=== PATIENT | female | born 1950 | race Caucasian/White ===

== ENCOUNTER 2016-12-14 13:35 | Emergency (ER) | payer BC, OTHER ==
[~2016-12-14] VITALS: Ht 165.1 cm; Wt 95.0 kg
[~2016-12-14 13:35] MED LIST: AMBI10TA PO; CIPR500T2 PO; CLON.5 PO; DARV PO; EFFE150C PO; METR-1 PO; TIZA4 PO
[2016-12-14 13:44] VITALS: BP 168/96; PULSE 86; RESP 16; TEMP 98.2; O2SAT 98
[2016-12-14] MEDS ORDERED: ONDANSETRON ODT 4 MG TAB PO ONE (14:00)
[2016-12-14] MEDS ORDERED: ZANA4CAP PO (14:00)
[2016-12-14] MEDS ORDERED: HYDROmorphone HCL PF 1 MG/ML VIAL IM ONE (14:00)
[2016-12-14] MEDS ORDERED: CLON.5 PO (14:00)
[2016-12-14] MEDS ORDERED: EFFE150C PO (14:00)
[2016-12-14] MEDS ORDERED: METF500T PO (14:00)
[2016-12-14] MEDS ORDERED: AMBI10TA PO (14:00)
--- NOTE | 2016-12-14 14:07 | PD ---
HPI Chief Complaint: Fall Time Seen by Provider: 13:49 Travel History International Travel<30 days: No Contact w/Intl Traveler<30days: No Traveled to known affect area: No History of Present Illness HPI 66 year-old woman with a history of fibromyalgia presents to the emergency department complaining of right arm pain after fall. She states she was in a closet cleaning it and then backed out and she tripped and fell. She landed on her right side. Denies hitting her head. Complains only of severe right arm pain. Pain seems to be most concentrated in the upper arm, but radiates throughout the shoulder and distal arm. She otherwise has been feeling well and healthy. No other recent illness or injury. No other recent falls. History Past Medical History Narrative Medical Fibromyalgia Menopausal: Yes Social History Alcohol Use: Yes (Occasional) Tobacco Use: No Allergies-Medications (Allergen,Severity, Reaction): Coded Allergies: Pentothal (Verified Allergy, Mild, vomiting, 12/14/16) Reported Meds & Prescriptions Reported Meds & Active Scripts Active Reported Metformin (Metformin HCl) 500 Mg Tab 500 Mg PO DAILY With a meal Ambien (Zolpidem Tartrate) 10 Mg Tab 10 Mg PO HS PRN Effexor XR 24 HR (Venlafaxine HCl) 150 Mg Cap 150 Mg PO DAILY Zanaflex (Tizanidine HCl) 4 Mg Cap 4 Mg PO HS Klonopin (Clonazepam) 0.5 Mg Tab 0.5 Mg PO DAILY Review of Systems Except as stated in HPI: all other systems reviewed are Neg Physical Exam Narrative GENERAL: 66 year-old woman, appears uncomfortable but nontoxic. SKIN: Warm and dry. CARDIOVASCULAR: Warm and well perfused. RESPIRATORY: Normal rate and effort. MUSCULOSKELETAL: Patient appears have some swelling about the right mid arm. She is tender throughout the arm. She will really range of motion shoulder all. She'll flex the elbow some. She'll pronate and supinate the elbow, and flexor wrist regularly. Distal extremity appears warm and well-perfused. Sensations intact. Radial/ulnar/median nerve function is intact. NEUROLOGICAL: Awake and alert. No gross deficits. Data Data Last Documented VS Vital Signs Date Time Temp Pulse Resp B/P Pulse Ox O2 Delivery O2 Flow Rate FiO2 12/14/16 13:44 98.2 86 16 168/96 98 Orders Shoulder, Limited(2vws) (12/14/16 ) Humerus (Min 2vws) (12/14/16 ) Hydromorphone Pf Inj (Dilaudid Pf Inj) (12/14/16 14:00) Ondansetron Odt (Zofran Odt) (12/14/16 14:00) Oxycodone-Acetamin 5-325 Mg (Percocet (12/14/16 15:00) MDM Medical Decision Making Medical Screen Exam Complete: Yes Emergency Medical Condition: Yes Interpretation(s) X-ray right shoulder, right humerus: Impacted comminuted humeral head fracture. Differential Diagnosis Fracture, contusion, dislocation, strain or sprain Narrative Course Medical decision making INITIAL: This a 66 year-old woman who presents to the emergency department with right arm injury suspicious for proximal humerus fracture. We'll check x-rays, reassess. Diagnosis Primary Impression: Fracture of humerus, proximal, right, closed Additional Instructions: Take Percocet as needed for pain. Take Alayna-Colace if needed for constipation. Wear sling and swath at all times except when showering. Follow-up with Dr. Rowland in the next 5-7 days. Med/Other Pt SpecificInfo: Prescription(s) given Scripts Sennosides-Docusate Sodium (Alayna-Colace)8.6-50 Mg Tab2 Tab PO BID PRN ( Constipation) #60 TAB Ref 0 Prov:Jaime Dhillon MD 12/14/16 Oxycodone-Acetaminophen (Percocet)5-325 mg Tab1-2 Tab PO Q4H PRN (PAIN) #28 TAB Ref 0 Prov:Jaime Dhillon MD 12/14/16 Disposition: 01 DISCHARGE HOME Condition: Stable Jaime Dhillon MD Dec 14, 2016 14:07
--- NOTE | 2016-12-14 14:55 | RADHPO ---
EXAM DATE/TIME: 12/14/2016 14:17 [facility] COMPARISON: No previous studies available for comparison. INDICATIONS : Right arm pain post fall. MEDICAL HISTORY : Fibromyalgia SURGICAL HISTORY : None. ENCOUNTER: Initial ACUITY: 1 day PAIN SCORE: 10/10 LOCATION: Right upper extremity FINDINGS: Again seen is a fracture of the humeral head. The distal humerus is intact. CONCLUSION: Humeral head fracture as described on the shoulder radiographs. Bayron Jalloh MD FACR on December 14, 2016 at 14:50 Board Certified Radiologist. This report was verified electronically.
--- NOTE | 2016-12-14 14:56 | RADHPO ---
EXAM DATE/TIME: 12/14/2016 14:13 [facility] COMPARISON: No previous studies available for comparison. INDICATIONS : Right shoulder pain post fall. MEDICAL HISTORY : None. SURGICAL HISTORY : None. ENCOUNTER: Initial ACUITY: 1 day PAIN SCORE: 10/10 LOCATION: Right upper extremity FINDINGS: There is impacted comminuted fracture of the humeral head with the greater tuberosity as a free fragm ent. The acromion and glenoid are intact. CONCLUSION: Humeral fracture as described above. Bayron Jalloh MD FACR on December 14, 2016 at 14:49 Board Certified Radiologist. This report was verified electronically.
[2016-12-14] MEDS ORDERED: oxyCODONE/ACETAMINOPHEN 5 MG/325 MG TAB PO ONE (15:00)
[2016-12-14] MEDS ORDERED: PERC5TAB12 PO (15:06)
[2016-12-14] MEDS ORDERED: PERI8.6T PO (15:06)
[2016-12-14 15:26] VITALS: BP 191/90; PULSE 88; RESP 16
== END 2016-12-14 15:37 | disposition home or self-care (01) ==
LOC: PHED 13:35
DX: S42.201A Unspecified fracture of upper end of right humerus, initial encounter for closed fracture (principal); M79.7 Fibromyalgia; W18.30XA Fall on same level, unspecified, initial encounter; Y93.E9 Activity, other interior property and clothing maintenance; Y92.098 Other place in other non-institutional residence as the place of occurrence of the external cause; Y99.8 Other external cause status
CPT/HCPCS: 29240; 73030; 73060; 96372; 99284; J1170